=== PATIENT | female | born 1995 | race Caucasian/White ===

== ENCOUNTER 2020-02-24 22:34 | Emergency (ER) | payer BC, SELFPAY ==
[2020-02-24 22:40] VITALS: BP 125/65; PULSE 84; RESP 15; TEMP 37; O2SAT 100; BMI 24.3
--- NOTE | 2020-02-24 22:52 | DI.RAD.S_ITS ---
PROCEDURE: XR FOOT RT MIN 3V INDICATIONS: twisted ankle now with pain and swelling on lateral side of foot TECHNIQUE: 3 views of the foot were acquired. COMPARISON: None. FINDINGS: Bones: Mildly displaced base of fifth metatarsal fracture, extending to articular surface. No suspicious bony lesions. Mild first MTP degenerative change. Soft tissues: No tibiotalar joint effusion. Achilles tendon appears normal. IMPRESSION: Base of fifth metatarsal fracture extending to articular surface. Dictated by: Damon Ford M.D. on 02/25/2020 at 8:14 Approved by: Damon Ford M.D. on 02/25/2020 at 8:17
--- NOTE | 2020-02-24 23:50 | ED.LOWEXIN ---
HPI - Extremity Injury (Lower) General Chief Complaint: Extremity Injury, Lower Stated Complaint: Right foot/ ankle injury Time Seen by Provider: 02/24/20 23:24 Source: patient and family Mode of arrival: Ambulatory Limitations: no limitations History of Present Illness HPI Narrative: 24-year-old female here for evaluation of a right foot injury. Patient states that several hours ago she was going down some stairs where she tripped. Had pain in her right foot since then. No other injuries from the event. She did have a splint at home that she placed over the area from a prior injury. No other injuries reported from the event Related Data Allergies Allergy/AdvReac Type Severity Reaction Status Date / Time No Known Drug Allergies Allergy Verified 02/24/20 23:22 Review of Systems Musculoskeletal Musculoskeletal: Denies tingling Comments: Right foot pain Integumentary/Breasts Skin/Breast: Denies lesions and Denies rash Neurologic Neurologic: Denies tingling Hematologic/Lymphatic Hematologic/Lymphatic: Denies easy bleeding and Denies easy bruising Patient History Medical History Healthy adult (Acute) Social History Smoking Status: Never smoker Smoking Status: Never smoker alcohol intake frequency: a few times a week Substance Use Type: does not use Exam Initial Vital Signs Initial Vital Signs: Vital Signs Temperature 98.6 F 02/24/20 22:40 Pulse Rate 84 02/24/20 22:40 Respiratory Rate 15 02/24/20 22:40 Blood Pressure 125/65 02/24/20 22:40 Pulse Oximetry 100 02/24/20 22:40 Const General: cooperative and comfortable Limitations: mental status not altered Cardio Pulses: dorsalis pedis present on the right Skin Lesions: no lesions Rashes: no rashes Neuro Sensory Exam: no sensory deficits noted Extrem Other: Right proximal fibula unremarkable, Achilles tendon unremarkable, no tenderness to palpation over the medial and lateral malleolus. Does have some tenderness to palpation just anterior to the lateral malleolus. Patient does have tenderness over the base of the 5th metatarsal. Rest of her foot exam is unremarkable. No tenderness over midfoot between 1st and 2nd toes. Procedures Orthopedic Splinting/Casting Injury #1: Side: right Lower Extremity Injury Location: foot Lower Extremity Immobilizer: boot orthosis Post splinting neuro exam: intact Post splinting vascular exam: intact Placed by: Nursing Course Orders Ordered: ED Orders 02/24/20 22:52 XR foot RT min 3V Stat Vital Signs Vital signs: Vital Signs - 8 hr 02/24/20 22:40 Temperature 98.6 F Pulse Rate 84 Respiratory Rate 15 Blood Pressure 125/65 Pulse Oximetry 100 MDM - Extremity Injury (Lower) Imaging Data Extremity x-ray #1: Attestation: I personally reviewed and interpreted this imaging study as follows: My Impression: Nondisplaced fracture base of 5th metatarsal MDM Narrative Medical decision making narrative: Patient is neurovascularly intact, x-ray show fracture base of 5th metatarsal. Patient is placed in a ortho boot. She will contact her primary provider when she returns home to discuss further consultation with Orthopedics. She was given care instructions and return precautions. She expressed understanding and agreement. Discharge Plan Departure Patient Disposition: Home Clinical Impression: Metatarsal fracture Qualifiers: Encounter type: initial encounter Metatarsal bone: fifth Fracture type: closed Fracture alignment: nondisplaced Laterality: right Qualified Code(s): S92.354A - Nondisplaced fracture of fifth metatarsal bone, right foot, initial encounter for closed fracture Discharge Date/Time: 02/25/20 00:36 Instructions: DI for Foot Fracture Activity Restrictions/Additional Instructions: Use the orthopedic boot like we discussed. Recommend that you contact your primary provider on Thursday for a follow-up to see whether not you need to see Orthopedics or if he/she is okay with following here care. Return to the emergency department for any new or worsening symptoms
== END 2020-02-25 00:36 | disposition home or self-care (01) ==
PROVIDERS: Emergency Provider Emergency Medicine
DX: S92.354A Nondisplaced fracture of fifth metatarsal bone, right foot, initial encounter for closed fracture (principal); W18.49XA Other slipping, tripping and stumbling without falling, initial encounter
CPT/HCPCS: 73630; 99283